=== PATIENT | female | born 1970 | race American Indian/Alaskan Native ===

== ENCOUNTER → 2017-10-18 | Outpatient (CLI) | payer OTHER ==
[~2017-10-18] MED LIST: CRUTCH4 USE; HYDACE25S PR; IBUP800 PO; [UNRECOGNIZED DRUG - OTHER] VAG
== END ==
LOC: LAB SHORT 07:50 → PLD 07:50
DX: L57.0 Actinic keratosis (principal)
CPT/HCPCS: 88305

== ENCOUNTER 2020-06-14 06:19 | Observation (INO) | payer OTHER ==
[~2020-06-14] VITALS: Ht 162.6 cm; Wt 77.1 kg
--- NOTE | 2020-06-14 08:08 | NUR ---
06/14/20 0808 Ricardo Moya CASE CANCELLED IN OR PER DR LEA AND DR. LEAL D/T POSSIBLE REACTION TO VANCOMYCIN. PT EXPRESSES AN UNDERSTANDING TO CANCEL.
--- NOTE | 2020-06-14 08:47 | NUR ---
06/14/20 0847 MAGI VARGAS PROCEDURAL CANCELATION PER DRS ORDERS. TRYPTASE LAB DRAW.
[2020-06-14 11:13] LABS: BASOPHILS ABSOLUTE AUTO 0.01 K/mm3 (0.00-0.23); BASOPHILS PERCENT AUTO 0 % (0-2); EOSINOPHILS ABSOLUTE AUTO 0.01 K/mm3 (0.00-0.68); EOSINOPHILS PERCENT AUTO 0 % (0-6); Hematocrit 41.2 % (33.0-51.0); Hemoglobin 13.3 g/dL (11.5-16.0); IMMATURE GRAN ABSOLUTE AUTO 0.04 K/mm3 (0.00-0.10); IMMATURE GRAN PERCENT AUTO 0 % (0-1); LYMPHOCYTES ABSOLUTE AUTO 0.88 K/mm3 (0.84-5.20); LYMPHOCYTES PERCENT AUTO 8 % (21-46); MONOCYTES ABSOLUTE AUTO 0.26 K/mm3 (0.16-1.47); MONOCYTES PERCENT AUTO 2 % (4-13); Mean Corpuscular HGB 30.7 pg (26.0-34.0); Mean Corpuscular HGB Conc 32.3 g/dL (31.5-36.5); Mean Corpuscular Volume 95 fL (80-100); Mean Platelet Volume 9.7 fL (9.1-12.4); NEUTROPHILS ABSOLUTE AUTO 10.23 K/mm3 (1.96-9.15); NEUTROPHILS PERCENT AUTO 90 % (41-73); Platelet Count 281 K/mm3 (150-400); RDW Coefficient Variation 12.5 % (11.7-14.2); RDW Standard Deviation 43.7 fL (35.1-46.3); Red Blood Cell Count 4.33 M/mm3 (3.80-5.20); White Blood Cell Count 11.43 K/mm3 (4.00-11.30)
--- NOTE | 2020-06-14 11:43 | NUR ---
PT ADMITTED AT 1020 A/O, NO N/V, NOT DIZZY, ON SOB AND SATS NOTED. VSS AND PT ORIENTED TO ROOM. PT WAS JUST UP TO BSC AND NO S/S. IV IS CURRRENTLY SL. PT IS IN NSR.
--- NOTE | 2020-06-14 11:47 | NUR ---
PT IS A/O. VSS. JUST SPOKE WITH DIXON CASTILLO. AND REPORT WAS GIVEN.
--- NOTE | 2020-06-14 12:54 | NUR ---
PT MOVED TO U-6 VAI W/C. PT IS A/O, W/O S/S GETTING UP TO CHAIR. PT VSS AND DENIES ANY DISTRESS.
--- NOTE | 2020-06-14 12:56 | NUR ---
OLIVER Goldman RN AWARE OF PT TRANSFER AND WILL CALL REPORT TO JASMINA STINSON WHEN SHE RETURNS FROM LUNCH.
--- NOTE | 2020-06-14 13:40 | NUR ---
REPORT CALLED TO BRIAN FREEDMAN.
--- NOTE | 2020-06-14 13:58 | NUR ---
PT ARRIVED IN THE UNIT VIA WHEELCHAIR TRANSFER PT FROM ICU. PT IS HERE FOR ARTHROSCOPY THIS AM AND HAD ANAPHYLACTIC REACTION WITH ONE OF THE MEDICINE PRE PROCEDURE, PROCEDURE WAS NOT COMPLETED. PT IS ALERT AND ORIENTED AT BASELINE, PT IS NOT SYMPTOMATIC ANYMORE, VITALS STABLE HR NSR 60'S, BP SYSTOLIC 120'S, SATS ABOVE 95% ON RA, AFEBRILE. DENIES CHEST PAIN, SOB OR PAIN. PT IS NOW RESTING IN BED AWAITING FOR ELIZABETH METCALF TO SEE THE PT THIS AFTERNOON. ABLE TO MAKE NEEDS KNOWN WILL MONITOR
[2020-06-14] MEDS ORDERED: FAMO20 PO (15:12)
[2020-06-14] MEDS ORDERED: Loratadine10 MG PO (15:12)
[2020-06-14] MEDS ORDERED: Prednisone20 MG PO (15:14)
--- NOTE | 2020-06-14 15:57 | NUR ---
PT DISCHARGED TO HOME TODAY WITH DISCHARGE ORDERS, PT TO FOLLOW UP WITH PCP AND POSS CONSIDER ALLERGEN TEST OR ALLERGY PROVIDER REFERRAL. PT WAS GIVEN HER FIRST DOSE OF PREDNISONE 40MG, LORATIDINE 10MG AND FAMOTIDINE 20MG PM DOSE PRIOR TO DISCHARGE. NEW MEDS AND INSTRUCTIONS DISCLOSED WITH THE PT, FRIEND AT BEDSIDE TO PROVIDE TRANSPORTATION. PT IS AMBULATORY, AMBULATED IN THE [place] FEW TIMES WITH NO ISSUES. LEG BRACE ON RIGHT LEG FOR SUPPORT. VITALS STABLE, NO OTHER ISSUES ENCOUNTERED, PT LEFT FACILITY AT 1550.
== END 2020-06-14 15:47 | disposition home or self-care (01) ==
LOC: ORSCSDS 06:19 → PCU 09:11 → ICUW 10:19 → PCU 12:52 → ENPENDDIS 14:48 → PCU 15:47
PROVIDERS: Nurse Practitioner Acute Care; ADMIT Orthopaedic Surgery
DX: T88.6XXA Anaphylactic reaction due to adverse effect of correct drug or medicament properly administered, initial encounter (principal); T36.8X5A Adverse effect of other systemic antibiotics, initial encounter; S83.511A Sprain of anterior cruciate ligament of right knee, initial encounter; D72.828 Other elevated white blood cell count; I10 Essential (primary) hypertension; I25.10 Atherosclerotic heart disease of native coronary artery without angina pectoris; G62.9 Polyneuropathy, unspecified; E66.9 Obesity, unspecified; Z68.29 Body mass index [BMI] 29.0-29.9, adult; Z88.0 Allergy status to penicillin; Z88.1 Allergy status to other antibiotic agents; Z88.5 Allergy status to narcotic agent; Z88.4 Allergy status to anesthetic agent; Z79.899 Other long term (current) drug therapy; Z79.52 Long term (current) use of systemic steroids; Z53.8 Procedure and treatment not carried out for other reasons; X58.XXXA Exposure to other specified factors, initial encounter; Y84.8 Other medical procedures as the cause of abnormal reaction of the patient, or of later complication, without mention of misadventure at the time of the procedure; Y82.8 Other medical devices associated with adverse incidents; Y92.238 Other place in hospital as the place of occurrence of the external cause; Z87.891 Personal history of nicotine dependence
CPT/HCPCS: 36415; 83520; 85025; G0378; J0171; J1100; J1200; J2250; J2370; J2405; J2704; J3010; J3370; J7512

== ENCOUNTER 2020-10-04 06:19 | Day surgery (SDC) | payer OTHER ==
[~2020-10-04] VITALS: Ht 162.6 cm; Wt 77.4 kg
[~2020-10-04 06:19] MED LIST changes: +FAMO20 PO; +Loratadine10 MG PO; +Prednisone20 MG PO
--- NOTE | 2020-10-04 07:23 | NUR ---
10/04/[address] SAID TO DISCONTINUE THE CLINDAMYCIN PER DR LEAL AND START THE ANCEF. APPROX. 20% OF THE CLINDAMYCIN 900MG WAS GIVEN BEFORE IT WAS DISCONTINUED.
--- NOTE | 2020-10-04 11:08 | NUR ---
10/04/20 1108 LIDIA MASSEY PT TO STEP DOWN VIA BED, SBA TO RECLINER. TROM BRACE IN PLACE AND DRESSING IS C/D/I. PT VSS ON ROOM AIR. TOLERATING PO INTAKE AND DENIES NAUSEA. PT REPORTS 5/10 PAIN, IS RESTING EASILY AND LEGS ARE RELAXED. NO GRIMACE. PT REPORTS THIS LEVEL OF PAIN IS "HIGHLY TOLERABLE" ENGAGED IN DC TEACHING AND ALL QUESTINOS ASKED AND ANSWERED
== END 2020-10-04 11:05 | disposition home or self-care (01) ==
LOC: ORSCSDS 06:19
PROVIDERS: Orthopaedic Surgery
PROC: 0SQC4ZZ Repair Right Knee Joint, Percutaneous Endoscopic Approach (ICD-10-PCS; principal; 2020-10-04 07:30)
PROC: 0MRN47Z Replacement of Right Knee Bursa and Ligament with Autologous Tissue Substitute, Percutaneous Endoscopic Approach (ICD-10-PCS; principal; 2020-10-04 07:30)
DX: S83.511A Sprain of anterior cruciate ligament of right knee, initial encounter (principal); S83.241A Other tear of medial meniscus, current injury, right knee, initial encounter; Z87.891 Personal history of nicotine dependence; Z79.899 Other long term (current) drug therapy; K21.9 Gastro-esophageal reflux disease without esophagitis
CPT/HCPCS: C1713; C1762; J0171; J0690; J1100; J1885; J2405; J2704; J3010; J7120